=== PATIENT | male | born 1965 | race Caucasian/White ===

== ENCOUNTER → 2016-07-16 | Outpatient (CLI) | payer MEDICAID ==
[~2016-07-16] MED LIST: BACTRIM DS 8001 TAB PO; CEPHALEXIN500 M3 PO; CLONAZEPAM0.5 M1 PO; FLOMAX 0.4MG C0.4 MG PO; HYDROCODONE-APA1 TA1 PO; HYDROXYZINE 25M25 MG PO; IBUPROFEN800 MG PO; LASIX20 MG PO; POTASSIUM CHLO10 ME1 PO; PRILOSEC20 M1 PO
--- NOTE | 2016-07-17 07:10 | RADIOLOGY REPORT PS360 ---
US SCROTUM Ordering Physician: Ayan Chavira MD Patient Age: 51 years: Male HISTORY: RT TESTICULAR MASS left testicle removed 26 years ago with testicular CA. Now pain on right. Intermittent. TECHNIQUE: Ultrasound scrotum bilaterally FINDINGS Left testicle is surgically absent. Removed due to cancer 26 years ago. The right testicle appears within normal limits. Generous size it measures 4.4 cm length x 3.5 cm x 2.3 cm. There is normal color Doppler flow to the right testicle. No testicular mass. The head of right epididymis measures up to 1.1 x 1 cm. Slightly generous size of the head as well as throughout the epididymis. Possibly reflection of prior epididymitis? Nonspecific. There is a hydrocele at the right hemiscrotum most evident fluid collection is seen at the lower portion of the scrotum. This measures 1.7 x 3.1 cm.. IMPRESSION: 1. Left testicleremoved 26 years ago -due to cancer 2. Right testicle: slightly generous size but appears normal. No testicular mass. Normal color Doppler flow 3. Hydrocele on right hemiscrotum also noted 4. Epididymis generous in size throughout. Nonspecific but could reflect history of epididymitis
== END ==
LOC: RAD 11:00
DX: N50.811 Right testicular pain (principal)

== ENCOUNTER → 2016-11-06 | Outpatient (CLI) | payer MEDICAID ==
[2016-11-06 14:17] LABS: HEMOGLOBIN 13.8 g/dL (14.1-18.0); LYMPH # 1.2 K/mm3 (0.7-4.5)
[2016-11-06 17:07] LABS: BUN 12 mg/dL (7-18)
[2016-11-06 17:58] LABS: GFR (ESTIMATED) 63 ML/MIN (>60)
[2016-11-07 09:38] LABS: Folate (Folic Acid) 6.4 ng/mL (>3.0)
== END ==
LOC: CARL-LAB 08:42
PROVIDERS: Specialist
DX: G25.9 Extrapyramidal and movement disorder, unspecified (principal); R25.1 Tremor, unspecified; M54.5 Low back pain; G89.29 Other chronic pain; Z85.47 Personal history of malignant neoplasm of testis

== ENCOUNTER 2016-12-23 09:15 | Emergency (ER) | payer MEDICAID ==
[~2016-12-23] VITALS: Ht 167.6 cm; Wt 93.4 kg
[~2016-12-23 09:15] MED LIST changes: +GABAPENTIN 600600 MG PO; +ZESTRIL5 MG PO
--- NOTE | 2016-12-23 09:53 | Emergency Room Report ---
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 N Clinical Suspician of Infection? N Mental Status: 1 - Regular (Normal Baseline) Sepsis Risk:Low Sepsis Risk Have you (or family members/close friends) recently traveled outside the [place]? N If Yes, where/when: Have you had exposure to infectious disease within the past month? N TB? Other? Specify: 51 years old white male with chronic back pain since an injury 4 years ago mostly lower extremities and radiation to the LEFT lower extremity. By an Mri done 08/01/16 in [facility], He does have spondylolisthesis with L5-S1 disc with left- sided foraminal narrowing. His baseline walk is wide gait with a LEFT sided limp. He sees will order a CT scan of the head with IV contrast which was negative. Also sees Dr. devine for pain management. His medical medications were refilled 2 days ago. Today, He presented with 3 day history of muscle jerks of both upper extremities and and and abdomen. Abdominal muscles, he maintains his lower extremity pain and antalgic gait. He denies weakness, numbness, loss of urine or bowel control. He denies headache neck rigidity, fever or chills, chest pain or abdominal pain. He has not taken his medicine this morning Source patient, RN notes reviewed, old records Exam Limitations no limitations ALLERGIES Coded Allergies: No Known Allergies (02/21/15) Home Medications Reported Medications Hydroxyzine Pamoate (Hydroxyzine) 25 MG PO Q6HP PRN ANXIETY #30 Hydrochlorothiazide (Microzide) 12.5 MG PO DAILY TIZANIDINE HCL (Zanaflex) 4 MG PO Q8 Lisinopril (Zestril) 5 MG PO DAILY TAMSULOSIN HCL (Flomax 0.4MG) 0.4 MG PO QHS Gabapentin (Gabapentin 600MG) 800 MG PO Q8 History Medical History General CAD? No Angina: No [place]: No Hypertension? No Hyperlipidemia? Yes CHF? No DVT? No PE? No COPD? No Asthma? No Anemia? No GERD? No Gastric ulcers? No GI Bleed? No Hernia? No Thyroid Problems? No Hypothyroidism? No CVA? No Seizures? No Diabetes? No Insulin Dependent: No Insulin Pump: No Home FSBS? No Renal Insuffiency? No End Stage Renal Disease? No UTI? No Stones? No BPH? No GB Disease: No Nephritic Syndrome? No Asplenia? No Hepatitis? No Sickle Cell Disease? No Arthritis? Yes Migraines? No Cataracts? No Glaucoma? No MRSA? No HIV? No TB? No Anxiety? Yes Depression? Yes Cancer? Yes Site: TESTICULAR More? No Immunization Hx DT/Tetanus > 10 Years Ago Surgical Hx Previous Surgery?Y TESTICULAR CANCER KNOT ON CHIN Social History Smoking Hx Smoker: Current Every Day Smoker Tobacco: Yes Type Cigarettes Packs/day 1 1/2 - 2 Packs Alcohol Alcohol: No Review of Systems All Other Systems Reviewed and Negative Constitutional no symptoms reported Eyes no symptoms reported ENT no symptoms reported. Respiratory no symptoms reported Cardiovascular no symptoms reported Gastrointestinal no symptoms reported Genitourinary no symptoms reported. Musculoskeletal see HPI, back pain, muscle stiffness (and muscle jerks) Skin no symptoms reported Psychiatric/Neurological see HPI, tremors Physical Exam Vital Signs Vital Signs Date Time Temp Pulse Resp B/P Pulse O2 O2 Flow FiO2 Ox Delivery Rate 12/23 1013 97.6 80 18 132/64 97 12/23 0919 97.6 80 18 136/67 97 - WBC >12,000 or <4,000 or 10% bands? 2 or more SIRS Criteria Met? B/P:136/67 MAP:90 Creatinine >2.0? UA output<0.5ml/kg/hr for 2 hrs? Platelet count >100,000? Lactate >2.0mmol/1? INR >1.2 or PTT > than 60 sec? Evidence of Organ Dysfunction? Provider documented clinical suspician of infection? N Sepsis Criteria Count: 0 Sepsis Risk: Low Sepsis Risk General Appearance normal appearance, WD/WN Eye Exam - bilateral eye normal exam, bilateral eye PERRL, bilateral eye EOMI Ear, Nose, Throat hearing grossly normal, normal ENT inspection Neck normal inspection, non-tender, supple, full range of motion Respiratory Status Yes: trachea midline, chest symmetrical, non tender chest. No: respiratory distress. Lung Sounds bilateral: normal breath sounds, lungs clear. Cardiovascular normal exam, regular rate/rhythm, no peripheral edema, no gallop, no JVD, no murmur, no rub, normal peripheral pulses Peripheral Pulses Pulses normal Yes Gastrointestinal normal bowel sounds, normal exam, non tender, soft, no organomegaly Extremities non-tender, normal range of motion, normal inspection Rectal normal exam, normal rectal tone, intact pinprick sensations to the saddle area Male Genitalia no hernia, CIRCUMCISED, left TESTICLE IS SURGICALLY ABSENT, NO LYMPHADENOPATHY. 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 Mental status normal mood/affect Skin intact, normal color, warm/dry Medical Decision Making LABS/Meds/Orders Pt receiving controlled substance in ED? No Results/Orders Laboratory Tests 12/23/16 1035: Ur Random Sodium Pending 12/23/16 1035: Ur Random Chloride Pending 12/23/16 1035: Urine Color DK YELLOW, Urine Appearance CLOUDY, Urine pH 5.0, Ur Specific [place] >= 1.030, Urine Protein 2+ H, Urine Ketones TRACE H, Urine Blood NEGATIVE, Urine Nitrate NEGATIVE, Urine Bilirubin NEGATIVE, Urine Urobilinogen 0.2, Ur Leukocyte Esterase NEGATIVE, Urine WBC 10-20, Ur Squamous Epith Cells 3- 5, Calcium Oxalate Crystal 1+, Urine Bacteria 4+, Urine Glucose NEGATIVE 12/23/16 0950: Sodium 129 L, Potassium 4.0, Chloride 96 L, Carbon Dioxide 22, BUN 50 H, Creatinine 5.0 H, Estimated Creat Clear 23 L, Estimated GFR (MDRD) 12, Glucose 111 H, Calcium 8.6, Magnesium 2.4 H, Total Bilirubin 0.4, AST 37, ALT 44, Alkaline Phosphatase 104, Total Protein 8.2, Albumin 3.9, Globulin 4.3 H, Albumin/Globulin Ratio 0.9 L, WBC 14.6 H, RBC 4.03 L, Hgb 12.6 L, Hct 37.5 L, MCV 92.9, RDW 13.6, Plt Count 207, MPV 8.6, Gran % 78.0, Gran # 11.4 H, Lymphocytes % 15.0, Monocytes % 5.3, Eosinophils % 1.5, Basophils % 0.3, Lymphocytes # 2.2, Monocytes # 0.8, Eosinophils # 0.2, Basophils # 0.0, PUBS MCHC 33.6, MCH 31.2 Orders Procedure Date/time Status DIET-NOTHING BY MOUTH 12/23 L Active CULTURE, URINE 12/23 1035 Active URINE CHLORIDE, RANDOM 12/23 1027 Active CHEST(2 VIEWS-NOT PORTABLE) 12/23 1023 Active URINE SODIUM, RANDOM 12/23 1022 Active URINALYSIS/COMPLETE 12/[address] SCAN REQ 12/23 942 Complete MAGNESIUM 12/23 942 Complete CBC WITH AUTO DIFF 12/23 942 Complete CHEM 12 PROFILE 12/23 942 Complete Departure Departure Time of Disposition 1037 Disposition Against Medical Advice Clinical Impression Primary Impression: Acute renal failure Secondary Impressions: Chronic pain, Left against medical advice, Prior testicular cancer Condition STABLE Referrals Fan AMAYA,Ayan Pardo (Family) Additional Instructions I INFORMED THE PATIENT ABOUT HIS LAB FINDINGS AND OBTAINED URINE FOR SODIUM AND CHLORIDE. I REVIEWED HIS UPDATED MEDICINE LIST AND CALLED DR RICHARDSON. AFTER DR CROFT AGREED TO ADMIT HIM THE PATIENT WANTED TO LEAVE AMA AWARE OF HIS RENAL FAILURE CAN CAUSE CARDIAC ARREST AND SUDDEN . HIS SISTERS WERE ON THE BED SIDE AND AWARE OF THE THE RISKS AND BENEFITS AND CO SIGNED BRYN SÁNCHEZ. Discharge Counseling Counseled pt/family regarding diagnosis, test results ED Critical Care Critical Care No If Critical Care minutes are documented, the time involved in the performance of seperately reportable procedures was not counted toward critical care time documented. I directly delivered medical care to this critically ill and/or injured patient. Timely evaluation and treatment was necessary to address the significant organ system(s) dysfunction present in this patient. at 1100
[2016-12-23 09:58] LABS: HEMOGLOBIN 12.6 g/dL (14.1-18.0); LYMPH # 2.2 K/mm3 (0.7-4.5)
[2016-12-23] MEDS ORDERED: MICROZIDE12.5 MG PO (10:41)
[2016-12-23] MEDS ORDERED: ZANAFLEX4 MG PO (10:42)
[2016-12-23 10:45] LABS: URINE BLOOD NEGATIVE (NEG)
[2016-12-23 10:48] LABS: URINE BILIRUBIN - DIPSTICK NEGATIVE (NEG)
--- NOTE | 2016-12-23 10:51 | RADIOLOGY REPORT PS360 ---
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 Sagittal and coronal reformatted images are reviewed as well. FINDINGS: There is normal alignment. No acute fracture or dislocation evident. C3-C4: Minimal bulging disc. C4-C5: Minimal bulging disc with mild degenerative disc disease. C5-C6: Degenerative disc disease with broad-based disc osteophyte complex eccentric to the right. Facet and uncovertebral hypertrophy is present with bilateral foraminal narrowing and bilateral lateral recess narrowing right greater than left. There is canal stenosis at 9 mm. C6-C7: Degenerative disc disease with bulging disc. Lung apices are clear. No lytic or blastic change. Incidental note is made of a lucent lesion involving the angle of the mandible on the left just deep to 2 adjacent molars. This area measures 8 mm consistent with a periapical abscess. There are multiple dental caries IMPRESSION: 1. Cervical spondylosis with degenerative disc disease along with facet arthrosis as described above. Please see above for detailed description. There is canal stenosis at C5-C6. 2. Left mandibular periapical abscess IMPRESSION:
[2016-12-23 11:00] VITALS: BP 130/74
--- NOTE | 2016-12-23 11:05 | RADIOLOGY REPORT PS360 ---
CHEST(2 VIEWS-NOT PORTABLE) HISTORY: Acute renal failure, tobacco abuse ARF ORDERING PHYSICIAN: Atilio Martinez MD PATIENT AGE: 51 years COMPARISON: 02/18/2015 FINDINGS: Unremarkable cardiovascular structures and 13 mm nodular opacity in the right infrahilar region not readily apparent on previous study. Developing pulmonary nodules consider chest value. No lobar consolidation or collapse. No acute bony anomalies. IMPRESSION: 13 mm right infrahilar nodule indeterminate. Consider chest CT for evaluation
== END 2016-12-23 11:03 | disposition left against medical advice (07) ==
LOC: ER 09:15
PROVIDERS: Emergency Medicine
DX: N17.9 Acute kidney failure, unspecified (principal); G25.9 Extrapyramidal and movement disorder, unspecified; F17.210 Nicotine dependence, cigarettes, uncomplicated; F41.8 Other specified anxiety disorders; Z79.899 Other long term (current) drug therapy; E78.5 Hyperlipidemia, unspecified; Z85.47 Personal history of malignant neoplasm of testis

== ENCOUNTER 2016-12-23 14:14 | Inpatient (IN) | payer MEDICAID ==
[~2016-12-23] VITALS: Ht 167.6 cm; Wt 93.6 kg
[~2016-12-23 14:14] MED LIST changes: +MICROZIDE12.5 MG PO; +ZANAFLEX4 MG PO
[2016-12-23 14:38] VITALS: BP 98/46
--- NOTE | 2016-12-23 14:50 | Emergency Room Report ---
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 N Clinical Suspician of Infection? N Mental Status: 1 - Regular (Normal Baseline) Sepsis Risk:Low Sepsis Risk Have you (or family members/close friends) recently traveled outside the [place]? N If Yes, where/when: Have you had exposure to infectious disease within the past month? N TB? Other? Specify: Mr. Ramos was back to be admitted. His jerks are better from this morning. He has no new complaints. Please see him earlier chart today. I did call Dr. West who is covering Dr. Chavira. Dr. West requested to add lactic acids and was started on IV fluids. His urine sodium and electrolytes are not back because the medicine did not test Source patient, RN notes reviewed, family (his son) Exam Limitations no limitations ALLERGIES Coded Allergies: No Known Allergies (02/21/15) Home Medications Reported Medications Hydroxyzine Pamoate (Hydroxyzine) 25 MG PO Q6HP PRN ANXIETY #30 Hydrochlorothiazide (Microzide) 12.5 MG PO DAILY TIZANIDINE HCL (Zanaflex) 4 MG PO Q8 Lisinopril (Zestril) 5 MG PO DAILY TAMSULOSIN HCL (Flomax 0.4MG) 0.4 MG PO QHS Gabapentin (Gabapentin 600MG) 800 MG PO Q8 History Medical History General CAD? No Angina: No [place]: No Hypertension? No Hyperlipidemia? Yes CHF? No DVT? No PE? No COPD? No Asthma? No Anemia? No GERD? No Gastric ulcers? No GI Bleed? No Hernia? No Thyroid Problems? No Hypothyroidism? No CVA? No Seizures? No Diabetes? No Insulin Dependent: No Insulin Pump: No Home FSBS? No Renal Insuffiency? No End Stage Renal Disease? No UTI? No Stones? No BPH? No GB Disease: No Nephritic Syndrome? No Asplenia? No Hepatitis? No Sickle Cell Disease? No Arthritis? Yes Migraines? No Cataracts? No Glaucoma? No MRSA? No HIV? No TB? No Anxiety? Yes Depression? Yes Cancer? Yes Site: TESTICULAR More? No Immunization Hx DT/Tetanus > 10 Years Ago Surgical Hx Previous Surgery?Y TESTICULAR CANCER KNOT ON CHIN Social History Smoking Hx Smoker: Current Every Day Smoker Tobacco: Yes Type Cigarettes Packs/day 1 1/2 - 2 Packs Alcohol Alcohol: No Review of Systems All Other Systems Reviewed and Negative Constitutional no symptoms reported Eyes no symptoms reported ENT no symptoms reported. Respiratory no symptoms reported Cardiovascular no symptoms reported Gastrointestinal no symptoms reported Genitourinary no symptoms reported. Musculoskeletal no symptoms reported Skin no symptoms reported Psychiatric/Neurological see HPI, tremors Physical Exam Vital Signs Vital Signs Date Time Temp Pulse Resp B/P Pulse O2 O2 Flow FiO2 Ox Delivery Rate 12/23 1438 98.6 82 18 98/46 95 - WBC >12,000 or <4,000 or 10% bands? 2 or more SIRS Criteria Met? B/P:98/46 MAP:63 Creatinine >2.0? UA output<0.5ml/kg/hr for 2 hrs? Platelet count >100,000? Lactate >2.0mmol/1? INR >1.2 or PTT > than 60 sec? Evidence of Organ Dysfunction? Provider documented clinical suspician of infection? N Sepsis Criteria Count: 0 Sepsis Risk: Low Sepsis Risk General Appearance normal appearance, WD/WN Eye Exam - bilateral eye normal exam, bilateral eye PERRL, bilateral eye EOMI Ear, Nose, Throat hearing grossly normal, normal ENT inspection Neck normal inspection, non-tender, supple, full range of motion Respiratory Status Yes: trachea midline, chest symmetrical, non tender chest. No: respiratory distress. Lung Sounds bilateral: normal breath sounds, lungs clear. 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 No Results/Orders Laboratory Tests 12/23/16 1425: Lactic Acid Pending Current Medication Orders Sig/Jyothi Start time Last Medication Dose Route Stop Time Status Admin Sodium Chloride 10 ML PRN PRN 12/23 1430 AC IV 12/24 1420 Orders Procedure Date/time Status IV SALINE LOCK 12/23 1420 Active LACTIC ACID 12/23 1420 Active Departure Departure Time of Disposition 1449 Disposition Still a Patient Clinical Impression Primary Impression: Acute renal failure Secondary Impressions: Chronic low back pain Condition STABLE Referrals Fan AMAYA,Ayan Pardo (PCP) ED Critical Care Critical Care No If Critical Care minutes are documented, the time involved in the performance of seperately reportable procedures was not counted toward critical care time documented. I directly delivered medical care to this critically ill and/or injured patient. Timely evaluation and treatment was necessary to address the significant organ system(s) dysfunction present in this patient. at 1450
[2016-12-23 16:39] VITALS: BP 98/46
[2016-12-23 17:10] VITALS: BP 92/60
[2016-12-23 19:30] VITALS: BP 107/64
[2016-12-23 19:42] VITALS: BP 123/66
[2016-12-24 03:56] VITALS: BP 107/64
[2016-12-24 07:28] VITALS: BP 148/70
--- NOTE | 2016-12-24 07:30 | PHARMACY CLINIC NOTE ---
Patient Demographics Patient Demographics Admission date: 12/23/16 Date: 12/24/16 Time: 0730 Allergies Coded Allergies: No Known Allergies (02/21/15) HEIGHT- FT: 5 IN: 6.00 K.[id number] VTE General Information Disclaimer The following section includes nursing documentation that has been pulled in for pharmacy review. Patient's VTE score: 1 Patient's VTE Risk: VERY LOW RISK Clinical trial participant? No VTE prophylaxis [id number] VTE prophylaxis ordered? Yes Type of prophylaxis/treatment: NOAM at 0730
[2016-12-24 07:47] VITALS: BP 148/70
--- NOTE | 2016-12-24 09:24 | HISTORY AND PHYSICAL REPORT ---
Demographics: Admit date: 12/23/16 Chief complaint: mm spasm PRIMARY DIAGNOSIS: ACUTE RENAL FAILURE Allergies: Coded Allergies: No Known Allergies (02/21/15) History of present illness: History of present illness: this wm presented to ed with mm spam and not feeling well - he has complicated hx of recent rubin and he reports blood in stool x 2 days but has cleared and found in acute renal failure and was admitted for ivf Past medical history: Immunization HX DT/Tetanus > 10 Years Ago Pneumonia Never Had TB Test in last year No General CAD? No Angina: No [place]: No Hypertension? No Hyperlipidemia? Yes CHF? No DVT? No PE? No COPD? No Asthma? No Anemia? No GERD? No Gastric ulcers? No GI Bleed? No Hernia? No Thyroid Problems? No Hypothyroidism? No CVA? No Seizures? No Diabetes? No Insulin Dependent: No Insulin Pump: No Home FSBS? No Renal Insuffiency? No UTI? No Stones? No BPH? No GB Disease: No Nephritic Syndrome? No Asplenia? No Hepatitis? No Sickle Cell Disease? No Arthritis? Yes Migraines? No Cataracts? No Glaucoma? No MRSA? No HIV? No TB? No Anxiety? Yes Depression? Yes Cancer? Yes Site: TESTICULAR More? No Past Surgical HX Previous Surgery?Y TESTICULAR CANCER KNOT ON CHIN Current home meds: Reported Medications Hydroxyzine Pamoate (Hydroxyzine) 25 MG PO Q6HP PRN ANXIETY #30 Hydrochlorothiazide (Microzide) 12.5 MG PO DAILY TIZANIDINE HCL (Zanaflex) 4 MG PO Q8 Lisinopril (Zestril) 5 MG PO DAILY TAMSULOSIN HCL (Flomax 0.4MG) 0.4 MG PO QHS Gabapentin (Gabapentin 600MG) 800 MG PO Q8 Social Hx: Smoking HX Tobacco Yes Type Cigarettes Packs/day 1 1/2 - 2 PACKS Are you/the child exposed to second-hand smoke: No Alcohol Alcohol: No Hx of Drug Use Drug Use? No Patien't marital status is Patient's support system is good Review of systems: Constitutional see HPI, weakness. No: fever. Eyes No: drainage. Ears, Nose, Mouth, Throat No ear discharge, No epistaxis, No throat pain Respiratory No: cough, SOB at rest, wheezing. Cardiovascular No chest pain, No palpitations, No syncope Gastrointestinal/Abdominal see HPI, nausea, poor appetite, poor fluid intake, No vomiting Genitourinary No: dysuria, frequency, hesitancy, hematuria. Musculoskeletal No: back pain, joint pain, neck pain. Skin No: rash. Neurological No: headache, seizure disorder. Psychiatric No: depressed. Exam: Lab data for last 24 hours: Laboratory Tests 12/23/16 1425: Lactic Acid 1.8 Admission vital signs: 1ST Vital Signs Result Date Time Pulse Ox 95 12/23 1438 B/P 98/46 12/23 1438 Temp 98.6 12/23 1438 Pulse 82 12/23 1438 Resp 18 12/23 1438 O2 Delivery ROOM AIR 12/23 1639 Exam General appearance: alert, awake Eyes: PERRLA ENT: dry mucous membranes, swollen upper lip but tongue ok and airway ok Neck: no JVD Cardiovascular: normal sinus rhythm, no murmur Respiratory: clear to auscultation, no respiratory distress ABD: soft Genitourinary: no hematuria Extremities: moves all Musculoskeletal: equal muscle strength Skin: dry 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 Chronic low back pain 2. Acute renal failure 3. Degenerative joint disease (DJD) of lumbar spine 4. Swollen upper lip Plan: will check labd and ct abd/pelvis at 0923
--- NOTE | 2016-12-24 11:00 | RADIOLOGY REPORT PS360 ---
CT ABD PELVIS W/O CONTRAST HISTORY: RENAL FAILURE,PELVIC/FLANK PAIN Acute renal failure. Pelvic pain history of testicular cancer 1989 Patient Age: 51 years: Male Ordering Physician: Ayan Chavira MD TECHNIQUE: Helical CT scanning performed through the abdomen and pelvis with no oral nor IV contrast utilized. Sagittal and coronal reconstructions on CT workstation. COMPARISON :No previous abdomen studies. December 1908/15 and 09/04/2013 MRI the L-spine which includes kidneys is utilized for comparison FINDINGS Lower thorax lung bases clear with no acute findings. Benign Calcified granuloma: 5 mm left lung base & 7 mm at right CP angle size Heart normal size. Abdomen/pelvis. Lack of oral and IV contrast decreases sensitivity. Liver: unremarkable. Gallbladder contracted from recent meal. No gallstones Spleen: no significant findings. Granulomas calcifications. Pancreas: unremarkable. Adrenals: unremarkable . No retroperitoneal nor mesenteric adenopathy. Calcification lower abdominal aorta but no aneurysm. GI tract. Food filled distended stomach reflect recent meal. Small bowel appears satisfactory. Moderate stool throughout colon. Appears normal. Appendix normal. Terminal ileum unremarkable. tract Left Kidney:. 4 cm renal cyst, noting minimal thin curvilinear calcified septa along its anterior superior aspect wall.... Would characterize as a Bosniak 2 .. Minimally complex but most likely benign cyst. ... Some of the calcification could be related to scarring laterally. The cyst was noted on recent July 2016 MRI and appears stable in size since that recent study. Also when compared compared back to 2009 MRI there is been only very slight interval enlargement of this cyst.-. Similar morphology. Would ideally recommend follow-up with contrast study within 6 months further evaluate postcontrast if renal function return to satisfactory level,. This will further further confirm stability of this most likely benign cyst. Right kidney: unremarkable. No calculi. No appreciable cyst. Pelvis. Postsurgical changes towards left groin Moderate distended bladder. Modest prostate A likely related to the left testicular cancer history versus hernia repair. Osseous structures. \No focal lesions evident. Degenerative disc changes spine L5/S1 degenerative disc with disc bulge most evident the left. Facet hypertrophy. Bilateral pars defect. Bilateral foraminal encroachment most pronounced to the left. L4/5. Mild diffuse disc bulge with facet hypertrophy [the right. Mild spinal stenosis. IMPRESSION ...... 1. No acute findings abdomen or pelvis No urinary tract obstruction or ureteral calculi.. 2. There is a 4 cm left renal cyst with minimal septation. Thin partially calcified septation anteriorly.. Although more likely benign this will benefit from follow-up (preferably with contrast if renal function recovers). This cyst is been present since 2009 MRI lumbar spine with only incremental progression in size,. Similar morphology favoring its benign nature.. 3.. No retroperitoneal nor mesenteric nor pelvic adenopathy. 4.. Other observations in text: --Postsurgical changes towards left groin. --Degenerative changes spine.
[2016-12-24 15:40] VITALS: BP 158/73
[2016-12-24 20:08] VITALS: BP 158/73
[2016-12-24 20:14] VITALS: BP 163/78
[2016-12-25 04:06] VITALS: BP 126/65
[2016-12-25 07:47] VITALS: BP 165/57
[2016-12-25 08:07] LABS: HEMOGLOBIN 11.6 g/dL (14.1-18.0)
[2016-12-25 08:08] LABS: LYMPH # 0.5 K/mm3 (0.7-4.5); LYMPH % 7.1 % (10-50)
[2016-12-25 09:30] LABS: NEUTROPHILS 95 % (42-76)
--- NOTE | 2016-12-25 09:58 | ACUTE CARE PROGRESS NOTE (QUA) ---
Progress Notes Subjective Date 12/25/16 Time 0956 Patient/family reports: feeling better, no complaints Nursing reports: alert Objective Findings Last VS-Temp:98.1 B/P:165/57 Pulse:82 Resp:20 SaO2:97 ROOM AIR Last weight lbs:206 oz:5 K.583 Method:Bed Scales Exam General appearance: normal appearance, awake, no acute distress Eyes: normal exam ENT: normal exam Neck: normal inspection, no carotid bruit, full range of motion Cardiovascular: normal exam, regular rate & rhythm Respiratory: normal exam, clear to auscultation, chest non-tender, good air movement, no respiratory distress, trachea midline ABD: normal exam, normal bowel sounds, soft Genitourinary: normal voiding & quantity Extremities: normal exam, moves all, no peripheral edema, warm Musculoskeletal: normal exam Skin: normal exam, intact, warm Neuro: normal exam, alert, intact, no deficit, oriented, speech clear Reviewed: allergies, medications, vital signs, lab results, radiology report, consult note Assessment/Plan Problem List 1. Chronic low back pain 2. Acute renal failure 3. Degenerative joint disease (DJD) of lumbar spine 4. Swollen upper lip Patient condition Stable Plan: initiate discharge plan This inpt stay is expected to cross 2 MNs from start of care Yes Comments: rounded with parker change bp meds at 0958
--- NOTE | 2016-12-25 10:00 | DISCHARGE SUMMARY STANDARD ---
Demographics Admit date: 12/23/16 Discharge date: 12/25/16 History of present illness History of present illness this wm presented to ed with mm spam and not feeling well - he has complicated hx of recent rubin and he reports blood in stool x 2 days but has cleared and found in acute renal failure and was admitted for ivf Hospital Course Hospital Course: iv fluids, monitor of labs cre down to 1.5 bun 38, will stop lisinopril and trial of norvac 5 mg. with close monitoring in office see parker in office saturday for labs. Discharge diagnoses Problem List 1. Chronic low back pain 2. Acute renal failure 3. Degenerative joint disease (DJD) of lumbar spine 4. Swollen upper lip Medications Medications: Discharge meds are as noted. Follow up Follow up in office in: 3 DAYS with: Parker AMAYA,Ayan Pardo Comment: rounded with parker at 1000
[2016-12-25] MEDS ORDERED: PREDNISONE 20MG20 MG PO (10:02)
[2016-12-25] MEDS ORDERED: NORVASC 5MG. TAB5 MG PO (10:02)
[2016-12-25 10:42] VITALS: BP 165/57
[2016-12-25 10:44] VITALS: BP 165/57
== END 2016-12-25 11:42 | disposition home or self-care (01) | DRG 684 ==
LOC: ER 14:14 → 2ND 15:00 → ER 15:00 → 2ND 16:00
PROVIDERS: Emergency Medicine; Family Medicine
DX: N17.9 Acute kidney failure, unspecified (principal); M51.36 Other intervertebral disc degeneration, lumbar region; Z72.0 Tobacco use; M54.16 Radiculopathy, lumbar region

== ENCOUNTER → 2016-12-28 | Outpatient (CLI) | payer MEDICAID ==
[2016-12-28 16:27] LABS: BUN 26 mg/dL (7-18)
[2016-12-28 16:36] LABS: GFR (ESTIMATED) 58 ML/MIN (>60)
[2016-12-28 16:43] LABS: AMPHETAMINES/METAMPHETAMINES NEGATIVE ng/mL (<1000)
== END ==
LOC: LAB 15:31
PROVIDERS: Emergency Medicine
DX: N17.9 Acute kidney failure, unspecified (principal); Z79.899 Other long term (current) drug therapy

== ENCOUNTER → 2017-01-16 | Outpatient (CLI) | payer MEDICAID ==
[~2017-01-16] MED LIST changes: +NORVASC 5MG. TAB5 MG PO; +PREDNISONE 20MG20 MG PO
[2017-01-16 16:05] LABS: AMPHETAMINES/METAMPHETAMINES NEGATIVE ng/mL (<1000)
== END ==
LOC: LAB 15:13
PROVIDERS: Emergency Medicine
DX: Z79.899 Other long term (current) drug therapy (principal)

== ENCOUNTER → 2017-02-13 | Outpatient (CLI) | payer MEDICAID ==
[2017-02-13 12:43] LABS: AMPHETAMINES/METAMPHETAMINES NEGATIVE ng/mL (<1000)
== END ==
LOC: LAB 11:24
PROVIDERS: Emergency Medicine
DX: Z79.899 Other long term (current) drug therapy (principal)

== ENCOUNTER → 2017-03-13 | Outpatient (CLI) | payer MEDICAID ==
[2017-03-13 19:53] LABS: AMPHETAMINES/METAMPHETAMINES NEGATIVE ng/mL (<1000)
== END ==
LOC: LAB 17:41
PROVIDERS: Emergency Medicine
DX: Z79.899 Other long term (current) drug therapy (principal)